=== PATIENT | male | born 1990 | race African-American/Black ===

== ENCOUNTER 2022-07-19 10:49 | Inpatient (IN) | payer OTHER ==
[~2022-07-19] VITALS: Ht 170.2 cm; Wt 56.7 kg
--- NOTE | 2022-07-19 10:49 | NUR ---
[facility] TO ER BED 10
--- NOTE | 2022-07-19 10:51 | NUR ---
MOTHER DALE CLARK [phone]
[2022-07-19 10:54] VITALS: BP 131/54
--- NOTE | 2022-07-19 11:01 | NUR ---
ASSUMED PATIENT CARE, NURSING ASSESMENT COMPLETED.
[2022-07-19 11:32] LABS: APPEARANCE,URINE CLEAR (CLEAR); BILIRUBIN,URINE NEGATIVE (NEGATIVE); BLOOD, URINE 3+ (NEGATIVE); COLOR,URINE YELLOW (YELLOW); LEUKOCYTE ESTERASE ,URINE TRACE (NEGATIVE); NITRITE, URINE NEGATIVE (NEGATIVE); UGLUCOSE NEGATIVE (NEGATIVE)
[2022-07-19 11:47] LABS: WBC,URINE 0-5 /HPF (0-5)
--- NOTE | 2022-07-19 12:00 | NUR ---
TO CT VIA [facility].
--- NOTE | 2022-07-19 12:09 | NUR ---
PT RETURN FROM CT
[2022-07-19 12:28] LABS: BARBITURATE, URINE NEGATIVE ng/ml (NEG <=200); BENZODIAZEPINE, URINE NEGATIVE ng/mL (NEG <=200); CANNABINOID, URINE POS ng/mL (NEG <=50); COCAINE, URINE NEGATIVE ng/mL (NEG <=300); OPIATE, URINE POS ng/mL (NEG <=2000); PHENCYCLIDINE SCREEN,URINE NEGATIVE ng/mL (NEG <=25)
--- NOTE | 2022-07-19 12:45 | NUR ---
DAD AT BEDSIDE, UPDATED HIM OF PATIENT'S PROGRESS AND PLAN OF CARE.
--- NOTE | 2022-07-19 13:13 | NUR ---
SPOKE TO POISON CONTROL, CRUZ, PER HER ADVISE MONITOR PATIENT'S VITAL SIGNS, MENTAL STATUS, AND SEIZURE PRECAUTIONS. MD FRIEDMAN.
[2022-07-19 13:15] LABS: BASOPHILS % (AUTO) 0.1 % (0.0-2.0); HEMATOCRIT 22.4 % (36-52); HEMOGLOBIN 7.6 g/dL (12.0-18.0); LYMPHOCYTES # (AUTO) 1.6 K/uL (2.0-11.5); LYMPHOCYTES % (AUTO) 4.7 % (20.5-51.1); MEAN CORPUSCULAR HEMOGLOBIN 37 pg (27-31); MEAN CORPUSCULAR HGB CONC 34 g/dL (33-37); MEAN CORPUSCULAR VOLUME 108.7 fL (80-94); MONOCYTES # (AUTO) 4.3 K/uL (0.8-1.0); MONOCYTES % (AUTO) 12.3 % (1.7-9.3); NEUTROPHILS # (AUTO) 28.8 K/uL (1.8-7.7); NEUTROPHILS % (AUTO) 82.9 % (42.2-75.2); PLATELET COUNT (AUTO) 447 K/uL (140-450); RED BLOOD CELL COUNT(AUTO) 2.06 MIL/uL (4.20-6.10); RED CELL DISTRIBUTION WIDTH 19.7 % (11.6-13.7)
[2022-07-19 13:17] LABS: WHITE BLOOD COUNT (AUTO) 34.7 K/uL (4.8-10.8)
[2022-07-19] MEDS ORDERED: NACL 0.9% 1,000 ML IV ONE (13:20)
[2022-07-19] MEDS ORDERED: cefTRIAXone 2,000 MG in DEXTROSE 5% 100 ML IV ONE (13:20)
[2022-07-19 13:27] LABS: ALBUMIN 4.7 g/dL (3.4-5.0); ANION GAP 23.4 (8-16); ASPARTATE AMINOTRANSFERASE 351 U/L (15-37); CARBON DIOXIDE 20.3 mmol/L (21-32); CHLORIDE 115 mmol/L (98-107); CREATININE 0.6 mg/dL (0.6-1.3); GFR ARICAN-AMERICAN 202 mL/min (>90); GLUCOSE 84 mg/dL (74-106); LIPASE 25 U/L (73-393); POTASSIUM 3.7 mmol/L (3.5-5.1); SODIUM SERUM 155 mmol/L (136-145); TOTAL BILIRUBIN 14.2 mg/dL (0.0-1.0); UREA NITROGEN, BLOOD 25 mg/dL (7-18)
[2022-07-19 13:31] LABS: ACETAMINOPHEN < 0.5 ug/ml (10-30); SALICYLATE < 2.8 mg/dL (2.8-20.0)
[2022-07-19] MEDS ORDERED: cefTRIAXone 2,000 MG VIAL ONE (15:15)
[2022-07-19] MEDS ORDERED: VANCOMYCIN PER PHARMACY MC PRN (16:05)
[2022-07-19] MEDS ORDERED: ZOLPIDEM 10 MG TAB PO PRN (16:10)
[2022-07-19] MEDS ORDERED: POTASSIUM CHLORIDE 10 MEQ TABER PO PRN (16:10)
[2022-07-19] MEDS ORDERED: MAG SULF 2000 MG/WATER PREMIX 50 ML IV PRN (16:10)
[2022-07-19] MEDS ORDERED: ONDANSETRON 4 MG/2 ML VIAL IVP PRN (16:10)
[2022-07-19] MEDS ORDERED: ACETAMINOPHEN 325 MG TAB PO PRN (16:10)
[2022-07-19] MEDS ORDERED: DOCUSATE SODIUM 100 MG GELCAP PO PRN (16:10)
[2022-07-19] MEDS ORDERED: DEXT 5% / NACL 0.45% 1,000 ML IV ONE (16:15)
[2022-07-19] MEDS: LORazepam 2 MG/ML VIAL IVP PRN ×2 (17:42→22:49)
[2022-07-19] MEDS ORDERED: ACETAMINOPHEN 650 MG SUPP RC ONE (17:48)
--- NOTE | 2022-07-19 17:52 | NUR ---
PER DR SHAKILA AU TO CHANGE TYLENOL PO TO RECTAL
[2022-07-19] MEDS ORDERED: ACETAMINOPHEN 650 MG SUPP RC PRN (17:55)
[2022-07-19] MEDS: VANCOMYCIN 1.25GM PREMIX 250 ML IV SCH (18:21)
[2022-07-19 19:23] LABS: ALBUMIN 4.9 g/dL (3.4-5.0); ASPARTATE AMINOTRANSFERASE 343 U/L (15-37); TOTAL BILIRUBIN 13.6 mg/dL (0.0-1.0)
--- NOTE | 2022-07-19 19:57 | NUR ---
Patient resting in bed, confused, awake, chest rise and fall symmetrical, no s/s of pain or s/s of distress, patient on monitor. Addendum: 07/19/22 at 2157 by [id number] Patient resting in bed, confused, awake, chest rise and fall symmetrical, no s/s of pain or s/s of distress, patient on monitor, seizure precautions/pads in place.
[2022-07-19] MEDS ORDERED: PIPERACILLIN/TAZOBACTAM 2.25 GM VIAL IV ONE (20:49)
[2022-07-19] MEDS: PIPERACILLIN/TAZOBACTAM 2.25 GM in DEXTROSE 5% 50 ML IV SCH (20:56)
[2022-07-19] MEDS ORDERED: PIPERACILLIN/TAZOBACTAM 2.25 GM in DEXTROSE 5% 50 ML IV SCH (21:00)
[2022-07-19] MEDS ORDERED: HALOPERIDOL IM 5 MG/ML VIAL IM SCH (21:15)
[2022-07-19] MEDS ORDERED: HALOPERIDOL IM 5 MG/ML VIAL ONE (21:22)
--- NOTE | 2022-07-19 21:53 | NUR ---
Patient resting in bed with eyes closed, confused, chest rise and fall symmetrical, no s/s of pain or s/s of distress, patient on monitor. Addendum: 07/19/22 at 2157 by [id number] Patient resting in bed, confused, awake, chest rise and fall symmetrical, no s/s of pain or s/s of distress, patient on monitor, seizure precautions/pads in place.
--- NOTE | 2022-07-19 22:09 | NUR ---
Poison control called for follow up on patient. Per poison control, if patient is persistently agitated and restless, and temperature fluctuating- order CMP and Total Creatinine Kinase. D/t possible rhabdomylosis
[2022-07-19 22:56] LABS: ALBUMIN 4.6 g/dL (3.4-5.0); ANION GAP 21.4 (8-16); CARBON DIOXIDE 19.7 mmol/L (21-32); CREATININE 0.8 mg/dL (0.6-1.3); POTASSIUM 4.1 mmol/L (3.5-5.1); TOTAL BILIRUBIN 8.4 mg/dL (0.0-1.0)
--- NOTE | 2022-07-19 23:02 | NUR ---
Patient resting in bed, confused, awake, chest rise and fall symmetrical, no s/s of pain or s/s of distress, patient on monitor, seizure precautions/pads in place. Addendum: 07/19/22 at 2302 by [id number] Patient resting in bed with eyes closed, chest rise and fall symmetrical, no s/s of pain or s/s of distress, patient on monitor, seizure precautions/pads in place.
[2022-07-20] VITALS (7 sets, daily range): BP systolic 109–133; BP diastolic 65–88
--- NOTE | 2022-07-20 00:32 | NUR ---
Patient resting in bed with eyes closed, chest rise and fall symmetrical, no s/s of pain or s/s of distress, patient on monitor, seizure precautions/pads in place.
[2022-07-20] MEDS ORDERED: LORazepam 2 MG/ML VIAL IVP SCH (02:30)
[2022-07-20] MEDS ORDERED: PIPERACILLIN/TAZOBACTAM 2.25 GM VIAL IV ONE (04:55)
[2022-07-20] MEDS: PIPERACILLIN/TAZOBACTAM 2.25 GM in DEXTROSE 5% 50 ML IV SCH ×3 (05:09→21:08)
--- NOTE | 2022-07-20 05:24 | NUR ---
Patient cleaned, linen changed.
[2022-07-20] MEDS: LORazepam 2 MG/ML VIAL IVP PRN ×3 (05:39→14:47)
--- NOTE | 2022-07-20 05:46 | NUR ---
[facility] called and asked about Vancomycin Trough collection before administration of Vancomycin. [facility] represenative stated, "Vancomycin is safe to be given now."
[2022-07-20] MEDS ORDERED: VANCOMYCIN 500 MG VIAL ONE (05:51)
[2022-07-20] MEDS ORDERED: VANCOMYCIN 1,000 MG VIAL ONE (05:51)
[2022-07-20] MEDS: VANCOMYCIN 1.25GM PREMIX 250 ML IV SCH ×2 (06:04→18:18)
--- NOTE | 2022-07-20 07:25 | NUR ---
Patient is lethargic and restless in bed, restraint remain in place for safety. Patient is non verbal and not following commands. sinus tach on telemetry, VSS on 2LNC. Patient is incontinent of bowel and bladder at present. IVF infusing at prescribed rate via right Shoulder PIV. No apparent distress noted. Report given to oncoming RN
--- NOTE | 2022-07-20 07:28 | NUR ---
Change of shift report given to AM Shift Nurse Elkin ISLAS. AM Shift Nurse Elkin RN verbalized understanding of report, no further questions.
[2022-07-20] MEDS ORDERED: NACL 0.45% 1,000 ML IV SCH (07:35)
--- NOTE | 2022-07-20 08:21 | NUR ---
GLOOD GLUCOSE CHECK 119 MG/DL
[2022-07-20 09:21] LABS: BASOPHILS # (AUTO) 0.1 K/uL (0.00-0.22); BASOPHILS % (AUTO) 0.3 % (0.0-2.0); HEMATOCRIT 21.4 % (36-52); HEMOGLOBIN 7.4 g/dL (12.0-18.0); LYMPHOCYTES # (AUTO) 2.9 K/uL (2.0-11.5); LYMPHOCYTES % (AUTO) 11.2 % (20.5-51.1); MEAN CORPUSCULAR HEMOGLOBIN 37 pg (27-31); MEAN CORPUSCULAR HGB CONC 35 g/dL (33-37); MONOCYTES # (AUTO) 3.8 K/uL (0.8-1.0); MONOCYTES % (AUTO) 14.5 % (1.7-9.3); NEUTROPHILS # (AUTO) 19.2 K/uL (1.8-7.7); PLATELET COUNT (AUTO) 490 K/uL (140-450); RED BLOOD CELL COUNT(AUTO) 2.01 MIL/uL (4.20-6.10)
[2022-07-20 09:32] LABS: CARBON DIOXIDE 24.2 mmol/L (21-32); CREATININE 0.7 mg/dL (0.6-1.3); POTASSIUM 3.2 mmol/L (3.5-5.1)
--- NOTE | 2022-07-20 10:06 | NUR ---
NSR, WOKE UP AND STARTED MILD TACHYCARDIA AND AWAKE AND RESTLESS
--- NOTE | 2022-07-20 10:28 | NUR ---
DR JHAVERI AWARE OF LAB RESULTS WBC 26K, HGB 7.4, NA 159, K 3.2. PT RESTLESS IN BED NOW, NO ATTEMPTS TO GET OUT OF BED. MEDICATED WITH PRN ATIVAN
--- NOTE | 2022-07-20 10:33 | NUR ---
PT PASSED SMALL LIGHT BROWN STOOLS POST RECTAL TEMP CHECK. NO BLADDER DISTENTION NOTED.
[2022-07-20] MEDS ORDERED: POTASSIUM CHLORIDE 40 MEQ, LIDOCAINE 1% 25 MG in NACL 0.9% 250 ML IV ONE (11:00)
--- NOTE | 2022-07-20 12:01 | NUR ---
BECAME RESTLESS AND TACHYCARDIC, URINATED IN BED AND TRIED TO GET OFF WET LINEN. PT NON VERBAL, MOANED WHILE MOVING, CONSOLED WHEN SHEETS WERE CHANGED. HR NOW 94
--- NOTE | 2022-07-20 12:20 | NUR ---
POSTASSIUM IVPB GIVEN AT THIS TIME, UNABLE TO DOCUMENT, COSIGN WITH MATTEO ISLAS
[2022-07-20] MEDS: DEXTROSE 5% 1,000 ML IV SCH ×2 (12:45→17:45)
--- NOTE | 2022-07-20 14:47 | NUR ---
STARTED GETTING RESTLESS, NO CHANGE IN LOC. KEEPS EYES CLOSED, NOT FOLLOWING DIRECTIONS, NON VERBAL, SITS UP AND REPOSITIONS SELF, NO ATTEMPTS TO PULL LINES OR GETTING OUT OF BED
[2022-07-20] MEDS: MORPHINE SULFATE 2 MG/ML SYR IVP PRN (15:14)
--- NOTE | 2022-07-20 15:32 | NUR ---
PATIENT HAS BEEN SCREENED AND CATEGORIZED HIGH NUTRITION RISK. PATIENT WILL BE SEEN WITHIN 1-2 DAYS OF ADMISSION. REVIEWED BY DIPESH LOPEZ RD
--- NOTE | 2022-07-20 15:43 | NUR ---
POISON CONTROL ON PHONE [facility] UPDATE
--- NOTE | 2022-07-20 15:54 | NUR ---
DC PLANNING: RECEIVED A CALL FROM [facility] SPOKE WITH LABORER TANBARK ROXY UPDATED PT'S CLINICAL AND PER DR JHAVERI PT IS NOT STABLE FOR TRANSFER . CM PROVIDE OUR HOUSE SUP NUMBER FOR FOLLOW UP. CM TO FOLLOW
--- NOTE | 2022-07-20 16:17 | NUR ---
07/20/22 RD INITIAL ASSESSMENT COMPLETED PLEASE REFER TO NUTRITION ASSESSMENT UNDER CARE ACTIVITY FOR ESTIMATED NUTRITIONAL NEEDS. 1. CONTINUE NPO DIET, PER MD 2. WHEN/ IF MEDICALLY APPROPRIATE, AND IF PT BEGINS PO INTAKE, RECOMMEND REGULAR DIET -IF PT BEGINS TUBE FEEDING, RECOMMEND VITAL AF@65 ML/HR, WILL PROVIDE 1560 ML TOTAL VOLUME, 1872 KCALS, 117 G PROTEIN, AND 1265 ML FREE WATER, PROVIDING 92% ESTIMATED CALORIE AND 100% ESTIMATED PROTEIN NEEDS 3. MONITOR LAB VALUES. 4. RD TO FOLLOW-UP 2-3 DAYS, HIGH RISK REVIEWED BY DIPESH LOPEZ RD
--- NOTE | 2022-07-20 17:35 | NUR ---
Patient will be admitted to care of DR JHAVERI. Admited to [id number]. Will go to room. Belongings list completed. Report to JACKIE.
--- NOTE | 2022-07-20 19:20 | NUR ---
Assumed pt care report received from Afia ISLAS, met pt restless in bed, eyes closed unable to follow comaand, occasional incomprehesible moaning, vitals signs stable, on room air O2 sat 99% lungs clear no sign of shortness of breadth NPO, lomeli to gravity and with adequate urine output. Soft restraints on bilateral upper extremities, close monitoring for safety pt is a fall risk,, elevated CK ongoing IV hydration D5W @200ML/HR IV fluids, no skin breakdown noted as per report received pt ingested unknown amount of Baclofen pain pills and [facility] poison control already aware. Ongoing support, reorientation /education to alleviates anxiety.
--- NOTE | 2022-07-20 20:28 | NUR ---
1930 PATIENT ON ROOM AIR. SATS 97%. NO SOB NOTED
--- NOTE | 2022-07-20 21:30 | NUR ---
Pt's mother called updates on pt's condition and ongoing treatments also encouraged to call back as needed
[2022-07-21] VITALS (19 sets, daily range): BP systolic 102–146; BP diastolic 60–85
[2022-07-21] MEDS: DEXTROSE 5% 1,000 ML IV SCH ×6 (00:16→20:35)
[2022-07-21] MEDS: VANCOMYCIN 1.25GM PREMIX 250 ML IV SCH ×2 (06:05→17:21)
[2022-07-21] MEDS: PIPERACILLIN/TAZOBACTAM 2.25 GM in DEXTROSE 5% 50 ML IV SCH ×3 (06:05→20:37)
[2022-07-21 07:03] LABS: BASOPHILS # (AUTO) 0.1 K/uL (0.00-0.22); BASOPHILS % (AUTO) 0.4 % (0.0-2.0); EOSINOPHILS % (AUTO) 0.1 % (0.0-4.0); HEMATOCRIT 20.8 % (36-52); LYMPHOCYTES # (AUTO) 3.8 K/uL (2.0-11.5); LYMPHOCYTES % (AUTO) 14.1 % (20.5-51.1); MEAN CORPUSCULAR HEMOGLOBIN 37 pg (27-31); MEAN CORPUSCULAR HGB CONC 34 g/dL (33-37); MEAN CORPUSCULAR VOLUME 108.1 fL (80-94); MONOCYTES # (AUTO) 3.9 K/uL (0.8-1.0); MONOCYTES % (AUTO) 14.5 % (1.7-9.3); NEUTROPHILS # (AUTO) 19.2 K/uL (1.8-7.7); NEUTROPHILS % (AUTO) 70.9 % (42.2-75.2); PLATELET COUNT (AUTO) 468 K/uL (140-450); RED BLOOD CELL COUNT(AUTO) 1.92 MIL/uL (4.20-6.10); RED CELL DISTRIBUTION WIDTH 21.1 % (11.6-13.7)
--- NOTE | 2022-07-21 07:20 | NUR ---
Change of shift report given to Afia ISLAS for continuity of care, as at this time pt awake alert vitals signs stable and safe on the unit
[2022-07-21 07:27] LABS: WHITE BLOOD COUNT (AUTO) 27.1 K/uL (4.8-10.8)
--- NOTE | 2022-07-21 07:30 | NUR ---
Recieved report from off going nurse, patient remains lethargic although mental nodding appropriately and following simple commands. Bilateral wrist restraints in place for safety, no signs of injury noted. NSR on telemetry, VSS on room air. Patient is in no distress. Will continue to observe patient.
[2022-07-21 07:51] LABS: ANION GAP 15.8 (8-16); CARBON DIOXIDE 21.9 mmol/L (21-32); CREATININE 0.7 mg/dL (0.6-1.3); POTASSIUM 3.7 mmol/L (3.5-5.1)
[2022-07-21 08:36] LABS: CKMB RELATIVE INDEX 0.1 (0.0-2.5); CREATINE KINASE MB 3.8 ng/mL (0-3.6)
--- NOTE | 2022-07-21 09:15 | NUR ---
SCREEN FOR LOW SINCERE SCALE AT RISK, CONTINUE TO FOLLOW PRESSURE ULCER PREVENTION INTERVENTIONS. -TURN AND REPOSITION PATIENT Q 2H, ASSIST IF NEEDED -ASSESS AND MONITOR SKIN CONDITION DURING POSITION CHANGES -OFFLOAD BILATERAL HEELS BY PLACING PILLOWS UNDER CALVES AT ALL TIMES, UNLESS OTHERWISE CONTRAINDICATED -PRESSURE REDISTRIBUTION BY PLACING PILLOWS AND OFFLOADING SACRALCOCCYX -KEEP SKIN CLEAN AND DRY AT ALL TIMES.
--- NOTE | 2022-07-21 19:22 | NUR ---
Patient is resting in bed, no apparent distress noted. Family present at bedside. Patient remains lethargic but more oriented and verbalizing. MIVF infusing as ordered via BARBARA midline. VSS on telemetry and room air. No distress noted. Report given mj Clement RN.
--- NOTE | 2022-07-21 20:10 | NUR ---
@1920 change of shift report received from AM RN met pt awake alert with family at the bedside vitals signs stable afebrile , oriented x2 but still pleasantly confused, reoriebtation to the unit and immediate surroundings verbalized understanding. Restrants reapplied for safety as pt attempting to pulled out his gown, IV lines said he does not want anything on him, close monitoring at the bedside.
--- NOTE | 2022-07-21 21:00 | NUR ---
Plan to transfer pt to [facility] room 124B, report given to CLAUDIA ISLAS over the phone for continuity of care and she verbalized understanding.
--- NOTE | 2022-07-21 21:13 | NUR ---
PT TRANSPORTED FROM ICU. RECEIVED REPORT FROM CANVASSING MANAGERROSHAN DIAMOND. PT AWAKE, AMBULATORY. ATTACHED TO INDUSTRIAL MAINTENANCE REPAIRER. RESPIRATIONS EVEN AND UNLABORED ON RA. NICOLLE PICC LINE INTACT AND PATENT. RESUMED IVF. SKIN INTACT, WARM AND DRY TO TOUCH. PT ON BILATERAL SOFT WRIST RESTRAINTS. ASSESSED BILATERAL WRISTS, NO INJURY NOTED, WITH GOOD CIRCULATION. PT ORIENTED TO PLACE, UNIT AND ROUTINE. V/S TAKEN. POC DISCUSSED WITH PT AND ROSHAN LIMA. CALL LIGHT WITHIN REACH. SAFETY PRECAUTIONS IN PLACE.
--- NOTE | 2022-07-21 21:20 | NUR ---
Pt transfered to room 124B MST awake alert vitals signs stable ambulates into the room and back on bed by this RN. Updates on the pt's condition at the bedside to CLAUDIA RN emphasis on pt's safety. Attempted to call pt"s MOTHER three times but unsuccessful unable to leave message mailbox is full as at this time.
--- NOTE | 2022-07-21 21:45 | NUR ---
CALLED PT'S MOM DALE TO INFORM PT WAS ALREADY TRANSFERRED IN [facility]ST UNIT AND THAT PT WAS EXPRESSING HIS WANTS TO SIGN OUT AND LEAVE. PT STATED THAT HE'S NOT SICK, HE CAN RIDE AN UBER AND GO HOME. DALE SPOKE TO PT. DALE REQUESTED FOR PT TO BE REMOVED FROM HAVING WRIST RESTRAINTS SINCE HE WAS NOW BECOMING MORE ALERT AND THAT PT WAS BECOMING MORE AGITATED WITH IT. SPOKE TO PT REGARDING RISKS AND BENEFITS OF HIS PICC LINE AND NOT TO PULL IT OUT. PT VERBALIZED UNDERSTANDING. PT WAS RELEASED FROM RESTRAINTS.
[2022-07-21] MEDS: MORPHINE SULFATE 2 MG/ML SYR IVP PRN (22:35)
[2022-07-22] VITALS: BP 111/65
[2022-07-22] MEDS: LORazepam 2 MG/ML VIAL IVP PRN (00:15)
[2022-07-22] MEDS: DEXTROSE 5% 1,000 ML IV SCH ×2 (01:39→04:45)
[2022-07-22 04:00] VITALS: BP 104/63
--- NOTE | 2022-07-22 04:13 | NUR ---
PRN MED FOR FEVER GIVEN FOR TEMP 100.2 F.
[2022-07-22] MEDS: PIPERACILLIN/TAZOBACTAM 2.25 GM in DEXTROSE 5% 50 ML IV SCH (04:29)
--- NOTE | 2022-07-22 05:13 | NUR ---
RE-ASSESSED TEMP 100.4. CONTINUED GIVING COOLING MEASURES. PT CLOSELY MONITORED.
[2022-07-22] MEDS: VANCOMYCIN 1.25GM PREMIX 250 ML IV SCH (06:00)
--- NOTE | 2022-07-22 06:26 | NUR ---
PT SITTING IN BED. NO DISTRESS NOTED. SAFETY PRECAUTIONS IN PLACE.
[2022-07-22 06:31] LABS: BASOPHILS # (AUTO) 0.1 K/uL (0.00-0.22); BASOPHILS % (AUTO) 0.5 % (0.0-2.0); EOSINOPHILS # (AUTO) 0.4 K/uL (0-0.4); LYMPHOCYTES # (AUTO) 3.9 K/uL (2.0-11.5); LYMPHOCYTES % (AUTO) 20.2 % (20.5-51.1); MEAN CORPUSCULAR HEMOGLOBIN 36 pg (27-31); MEAN CORPUSCULAR HGB CONC 34 g/dL (33-37); MEAN CORPUSCULAR VOLUME 106.1 fL (80-94); MONOCYTES # (AUTO) 2.1 K/uL (0.8-1.0); MONOCYTES % (AUTO) 10.8 % (1.7-9.3); NEUTROPHILS % (AUTO) 66.5 % (42.2-75.2); PLATELET COUNT (AUTO) 403 K/uL (140-450); RED BLOOD CELL COUNT(AUTO) 1.74 MIL/uL (4.20-6.10); RED CELL DISTRIBUTION WIDTH 19.2 % (11.6-13.7); WHITE BLOOD COUNT (AUTO) 19.5 K/uL (4.8-10.8)
[2022-07-22 06:46] LABS: CARBON DIOXIDE 22.1 mmol/L (21-32); CREATININE 0.5 mg/dL (0.6-1.3); POTASSIUM 3.1 mmol/L (3.5-5.1)
[2022-07-22 06:56] LABS: HEMATOCRIT 18.5 % (36-52); HEMOGLOBIN 6.3 g/dL (12.0-18.0)
--- NOTE | 2022-07-22 06:56 | NUR ---
RECEIVED CRITICAL LAB VALUE HG-6.3 HCT-18.5. INFORMED DR GALO. AWAITING FOR RESPONSE.
--- NOTE | 2022-07-22 07:15 | NUR ---
GAVE BEDSIDE REPORT TO ROSHAN COURTNEY FOR CONTINUITY OF CARE. ENDORSED CRITICAL LAB FOR HG 6.3 AND HCT 18.5, AWAITING FOR MD ORDER. PT IS STABLE.
[2022-07-22 08:00] VITALS: BP 126/75
--- NOTE | 2022-07-22 08:20 | NUR ---
Patient refuses blood transfusion, says he wants to go home. His rationale was having bad reactions with blood transfusion in the past. Patient refuses cheese cook.
== END 2022-07-22 08:45 | disposition left against medical advice (07) | DRG 871 ==
LOC: MED 10:49 → MTU 16:09 → MIC 07-20 16:10 → MTU 07-21 21:20
PROVIDERS: ADMIT Family Medicine; ATTEND Family Medicine
DX: A41.9 Sepsis, unspecified organism (principal); G93.41 Metabolic encephalopathy; J18.9 Pneumonia, unspecified organism; M62.82 Rhabdomyolysis; E87.0 Hyperosmolality and hypernatremia; E87.1 Hypo-osmolality and hyponatremia; N39.0 Urinary tract infection, site not specified; T42.8X1A Poisoning by antiparkinsonism drugs and other central muscle-tone depressants, accidental (unintentional), initial encounter; R65.20 Severe sepsis without septic shock; D64.9 Anemia, unspecified; E80.6 Other disorders of bilirubin metabolism; K82.9 Disease of gallbladder, unspecified; D72.829 Elevated white blood cell count, unspecified; D57.1 Sickle-cell disease without crisis; E86.1 Hypovolemia; Z20.822 Contact with and (suspected) exposure to COVID-19; Y92.009 Unspecified place in unspecified non-institutional (private) residence as the place of occurrence of the external cause
CPT/HCPCS: 36415; 70450; 71045; 76705; 80048; 80053; 80076; 80202; 80305; 81001; 82140; 82550; 82553; 83605; 83690; 83735; 85025; 87040; 87086; 93005; 96365; 99291; 99292; G0480; G0482; J0696; J1630; J2001; J2060; J2270; J2543; J3370; J3372; J3480; J7030; J7060; Q0092